=== PATIENT | male | born 1935 | race Caucasian/White ===

== ENCOUNTER → 2017-05-05 | Outpatient (CLI) | payer MEDICARE | LOC: COL.LAB 08:55 | DX: Z96.651 Presence of right artificial knee joint (principal) ==

== ENCOUNTER → 2017-05-16 | Outpatient (REF) ==
[2017-05-16 06:41] LABS: HEMATOCRIT 32.1 % (42.0-52.0); HEMOGLOBIN 9.2 g/dl (13.5-18.0)
== END ==
LOC: ZMSC 06:32
PROVIDERS: Orthopaedic Surgery
DX: Z01.89 Encounter for other specified special examinations (principal)